=== PATIENT | male | born 1965 | race Caucasian/White ===

== ENCOUNTER → 2024-10-16 11:29 | Outpatient (CLI) | payer OTHER, SELFPAY ==
--- NOTE | 2024-10-16 11:35 | DI.RAD.S_ITS ---
PROCEDURE: XR WRIST LT MIN 3V INDICATIONS: WRIST PAIN TECHNIQUE: Four views of the left wrist were acquired. COMPARISON: None. FINDINGS: Bones: Ulnar minus anomaly noted. No focal osseous lesions. Joints: The joint spaces are normal in width and alignment without arthritic change. Soft tissues: No soft tissue abnormality. IMPRESSION: Ulnar minus anomaly Dictated by: Guillaume Rodríguez M.D. on 10/17/2024 at 11:41 Approved by: Guillaume Rodríguez M.D. on 10/17/2024 at 11:42
--- NOTE | 2024-10-16 11:35 | DI.RAD.S_ITS ---
PROCEDURE: XR FOREARM LT 2V INDICATIONS: WRIST PAIN TECHNIQUE: 2 views of the forearm were acquired. COMPARISON: None. FINDINGS: Bones: Ulnar minus anomaly noted Joints: The joint spaces are normal in width and alignment without arthritic change. Soft tissues: No soft tissue abnormality. IMPRESSION: Ulnar minus anomaly otherwise negative Dictated by: Guillaume Rodríguez M.D. on 10/17/2024 at 11:40 Approved by: Guillaume Rodríguez M.D. on 10/17/2024 at 11:41
== END ==
PROVIDERS: Referring Provider Family Medicine; Visit Provider Family Medicine
DX: S69.92XA Unspecified injury of left wrist, hand and finger(s), initial encounter (principal); X58.XXXA Exposure to other specified factors, initial encounter
CPT/HCPCS: 73090; 73110